=== PATIENT | female | born 1970 | race African-American/Black ===

== ENCOUNTER 2018-12-25 09:55 | Observation (INO) | payer OTHER ==
[~2018-12-25] VITALS: Ht 157.5 cm; Wt 109.5 kg
[~2018-12-25 09:55] MED LIST: FLUC150T PO; METF500T PO; METO25TA2 PO; METOPROLOL25 M1 PO; METROGEL VAG 0.75% VA; NYST100016 EX; PRAVACHOL20 MG PO; RANI150T78 PO; TERC0.4C VA
[2018-12-25 10:20] VITALS: BP 141/73; TEMP 98.2
[2018-12-25 11:16] LABS: PLATELET COUNT 443 K/uL (152-353)
[2018-12-25 11:27] VITALS: BP 141/73; TEMP 98.2; Ht 157.5 cm; Wt 109.5 kg
[2018-12-25 11:38] LABS: POTASSIUM 4.3 mmol/L (3.6-5.2)
[2018-12-25 17:00] VITALS: BP 143/124; TEMP 98.1
[2018-12-25 20:00] VITALS: BP 120/61; TEMP 98.6
[2018-12-26] VITALS: BP 121/52; TEMP 98
[2018-12-26 04:00] VITALS: BP 134/68; TEMP 98
[2018-12-26 04:50] LABS: PLATELET COUNT 387 K/uL (152-353)
[2018-12-26 05:35] LABS: POTASSIUM 4.3 mmol/L (3.6-5.2)
[2018-12-26 08:00] VITALS: BP 124/63; TEMP 97.9
[2018-12-26 16:00] VITALS: BP 139/74; TEMP 98.5
[2018-12-26 20:00] VITALS: BP 132/64; TEMP 98.4
[2018-12-27] VITALS: BP 126/60; TEMP 98.7
[2018-12-27 04:00] VITALS: BP 141/66; TEMP 99
[2018-12-27 08:00] VITALS: BP 159/81; TEMP 98.8
== END 2018-12-27 09:52 | disposition home or self-care (01) ==
LOC: MED/SURG 09:55
PROVIDERS: ADMIT Family Medicine
DX: E86.0 Dehydration (principal); R11.2 Nausea with vomiting, unspecified; E11.9 Type 2 diabetes mellitus without complications; I10 Essential (primary) hypertension; R10.84 Generalized abdominal pain; R51 Headache; R06.02 Shortness of breath; D64.89 Other specified anemias; R07.89 Other chest pain; D72.828 Other elevated white blood cell count
CPT/HCPCS: 80053; 81000; 81025; 82150; 82550; 82728; 82948; 83690; 84481; 84484; 85027; 87040; 93005; 96360; 96361; 96367; 96375; 99220; G0378; G0379; J0696; J1885; J2550; J3490